=== PATIENT | female | born 1965 | race Caucasian/White ===

== ENCOUNTER 2021-11-16 13:37 | Emergency (ER) | payer BC ==
[~2021-11-16] VITALS: Ht 157.5 cm; Wt 50.3 kg
[~2021-11-16 13:37] MED LIST: PREDNISONE2.5 MG; SINGULAIR10 MG; TUSSI-PRES LIQ118 ML PO; TUSSIONEX PENN115 ML PO; ZITHROMAX500 MG
== END 2021-11-16 17:57 | disposition home or self-care (01) ==
LOC: ER 13:37
DX: U07.1 COVID-19 (principal); E86.0 Dehydration